=== PATIENT | male | born 1965 | race Caucasian/White ===

== ENCOUNTER 2017-04-28 16:24 | Emergency (ER) | payer OTHER ==
[~2017-04-28] VITALS: Ht 180.3 cm; Wt 92.1 kg
[2017-04-28 22:03] VITALS: BP 124/81
== END 2017-04-28 22:13 | disposition home or self-care (01) ==
LOC: ED 16:24
DX: F07.81 Postconcussional syndrome (principal); G44.319 Acute post-traumatic headache, not intractable; M54.6 Pain in thoracic spine; M54.2 Cervicalgia
CPT/HCPCS: J7030